=== PATIENT | female | born 1990 | race Asian ===

== ENCOUNTER 2022-12-28 10:05 | Inpatient (IN) ==
[2022-12-28] MEDS ORDERED: Promethazine INJ(RESTRICTED) 25 MG/ML 1 ml VIAL IV PRN (11:32)
[2022-12-28] MEDS ORDERED: Buffered Lidocaine 1% SYRIN 1 ml INTRADERM ONE (11:32)
[2022-12-28] MEDS ORDERED: Nalbuphine 10 MG/ML 1 ML VIAL IV PRN (11:32)
[2022-12-28] MEDS ORDERED: Lactated Ringers 1000 ml BAG 1,000 ML IV ONE ×2 (11:32→18:03)
[2022-12-28] MEDS ORDERED: Oxytocin in LR 20,000 MILLI.UNIT/1,000 ML BAG IV SCH (11:45)
[2022-12-28 11:47] LABS: ABS Eosinophils 0.1 10^3/uL (0.0-0.5); ABS Lymphocytes 1.1 10^3/uL (1.0-4.8); ABS Monocytes 0.3 10^3/uL (0.0-0.9); ABS Neutrophils 3.4 10^3/uL (1.5-7.6); Eosinophil % 1.8 %; Hematocrit 37.3 % (35-45); Hemoglobin 13.1 g/dL (11.5-14.3); Lymphocyte % 22.3 %; Mean Corpuscular Hgb Conc 35.1 g/dL (31-36); Mean Corpuscular Volume 93.9 fL (80-97); Mean Platelet Volume 9.9 fL (7.5-11.2); Nucleated Red Blood Cells % 0.1 /100 WBC (0.0-0.4); Platelet Count 136 10^3/uL (150-450); Red Blood Count 3.98 10^6/uL (3.63-4.92); Red Cell Distribution Width 14.2 % (12-17); White Blood Count 4.9 10^3/uL (3.8-11.8)
[2022-12-28] MEDS ORDERED: Lactated Ringers 1000 ml BAG 1,000 ML IV SCH ×4 (12:00→21:00)
[2022-12-28 12:15] LABS: Urine Benzodiazepine Screen None Detected (None Detect); Urine Cannabinoids Screen None Detected (None Detect); Urine Opiates Screen None Detected (None Detect)
[2022-12-28] MEDS ORDERED: OBEPIDURAL (200 ML) 200 ML EPIDURAL ONE (17:21)
[2022-12-28] MEDS ORDERED: Lidocaine 1.5% EPI 1:200,000 30 ML SDV ONE (17:21)
[2022-12-28] MEDS ORDERED: Lactated Ringers 1000 ml BAG 500 ML IV PRN ×2 (18:03)
[2022-12-28] MEDS ORDERED: Sodium Citrate/Citric Acid LIQ 15 ML UDC PO PRN (18:03)
[2022-12-28] MEDS ORDERED: Phenylephrine 40 mcg/mL 10mL (400mcg) SYRINGE IV PUSH PRN ×2 (18:03)
[2022-12-28] MEDS ORDERED: OBEPIDURAL (200 ML) 200 ML EPIDURAL SCH (19:00)
[2022-12-28 19:19] LABS: Urine Appearance Cloudy; Urine Bilirubin Negative (Negative); Urine Blood Negative (Negative); Urine Color Yellow; Urine Glucose 1+(50 mg/dL) (Negative); Urine Ketones Negative (Negative); Urine Nitrite Negative (Negative); Urine Protein Negative (Negative); Urine Specific Gravity 1.009 (1.002-1.030); Urine Urobilinogen Negative (Negative)
[2022-12-28] MEDS ORDERED: Dibucaine 1% OINT 28.35 GM TUBE PR PRN (20:43)
[2022-12-28] MEDS ORDERED: Witch Hazel PAD JAR TOPICAL PRN (20:43)
[2022-12-28] MEDS ORDERED: Glycerin ADULT 2.4 gm SUPP PR PRN (20:43)
[2022-12-28] MEDS ORDERED: Lidocaine 1% VIAL 10 MG/ML VIAL 30 ML INJ ONE (21:34)
[2022-12-28 22:32] LABS: Hemoglobin 10.2 g/dL (11.5-14.3)
[2022-12-29 06:45] LABS: ABS Basophils 0.1 10^3/uL (0.0-0.1); ABS Eosinophils 0.1 10^3/uL (0.0-0.5); ABS Lymphocytes 1.2 10^3/uL (1.0-4.8); ABS Monocytes 0.4 10^3/uL (0.0-0.9); ABS Neutrophils 6.3 10^3/uL (1.5-7.6); ABS Nucleated RBC 0.01 10^3/ul; Eosinophil % 0.7 %; Hematocrit 23.5 % (35-45); Hemoglobin 8.3 g/dL (11.5-14.3); Lymphocyte % 14.5 %; Mean Corpuscular Hemoglobin 32.5 pg (27-33); Mean Corpuscular Hgb Conc 35.4 g/dL (31-36); Mean Corpuscular Volume 91.9 fL (80-97); Mean Platelet Volume 9.7 fL (7.5-11.2); Nucleated Red Blood Cells % 0.2 /100 WBC (0.0-0.4); Platelet Count 97 10^3/uL (150-450); Red Blood Count 2.56 10^6/uL (3.63-4.92); Red Cell Distribution Width 13.6 % (12-17); White Blood Count 7.9 10^3/uL (3.8-11.8)
[2022-12-30 06:57] LABS: ABS Eosinophils 0.1 10^3/uL (0.0-0.5); ABS Lymphocytes 1.6 10^3/uL (1.0-4.8); ABS Monocytes 0.3 10^3/uL (0.0-0.9); ABS Neutrophils 5.1 10^3/uL (1.5-7.6); Eosinophil % 1.7 %; Hematocrit 23.2 % (35-45); Hemoglobin 8.3 g/dL (11.5-14.3); Lymphocyte % 22.8 %; Mean Corpuscular Hemoglobin 33.6 pg (27-33); Mean Corpuscular Hgb Conc 35.7 g/dL (31-36); Mean Corpuscular Volume 94.1 fL (80-97); Mean Platelet Volume 9.5 fL (7.5-11.2); Platelet Count 93 10^3/uL (150-450); Red Blood Count 2.47 10^6/uL (3.63-4.92); Red Cell Distribution Width 14.2 % (12-17); White Blood Count 7.2 10^3/uL (3.8-11.8)
[2022-12-30 08:14] VITALS: BP 85/61
== END 2022-12-30 12:13 | disposition home or self-care (01) | DRG 560 ==
LOC: MCHOBOUT 10:05 → MCHOB 10:31
PROVIDERS: ADMIT Advanced Practice Midwife; ATTEND Advanced Practice Midwife